=== PATIENT | female | born 1995 | race Caucasian/White ===

== ENCOUNTER 2020-01-01 06:50 | Emergency (ER) | payer OTHER, SELFPAY ==
[2020-01-01 06:55] VITALS: BP 139/66; PULSE 124; RESP 20; TEMP 36.8; O2SAT 99
--- NOTE | 2020-01-01 07:16 | ED.NAVMDI ---
HPI - Nausea/Vomiting/Diarrhea General Chief complaint: Abdominal Pain Stated complaint: VOMITING Time Seen by Provider: 01/01/20 07:04 Source: patient Mode of arrival: ambulatory Limitations: no limitations History of Present Illness HPI Narrative: Patient is a 24-year-old female who presents to the emergency department with complaint of nausea and vomiting. Patient reports onset of symptoms yesterday evening. She also reports periumbilical abdominal pain, intermittent chest pain, headache, dizziness upon standing, fever, chills, sweats, rhinorrhea, and congestion. Patient is denying any diarrhea or urinary symptoms. MD elicited complaint: nausea, vomiting and abdominal pain Onset (ago): day(s) Associated nausea: Yes Associated abdominal pain: Yes Location of pain: periumbilical Pain consistency: constant Quality: aching Associated symptoms: chest pain, diaphoresis, fever/chills, headaches, nausea/vomiting and other (Rhinorrhea, congestion, dizziness) Related Data Allergies Allergy/AdvReac Type Severity Reaction Status Date / Time cinnamon Allergy Anaphylaxis Verified 01/01/20 07:00 Sulfa (Sulfonamide Allergy Itching Verified 01/01/20 07:00 Antibiotics) Review of Systems Review of Systems: All systems reviewed & are unremarkable except as noted in HPI and below Constitutional: Constitutional: Reports chills, Reports excessive sweating, Reports fever(s) and Reports headache(s) ENT: Reports nasal congestion and Reports nasal discharge Gastrointestinal: Gastrointestinal: Reports abdominal pain, Denies diarrhea, Reports nausea and Reports vomiting Genitourinary: Genitourinary: Reports amenorrhea (Secondary to implanted control), Denies hematuria, Denies nocturia and Denies dysuria [facility] Past Medical History Medical History (Updated 01/01/20 @ 09:50 by Cira Celis MD) Kidney stones Surgical History Surgical History (Updated 01/01/20 @ 07:22 by Cira Celis MD) No history of previous surgery Social History Social History (Updated 01/01/20 @ 07:22 by Cira Celis MD) Smoking status: Never smoker Gender identity (if verbalized by the patient): Female Comments Primary care provider: Shona Lopez NP Exam Const: General: cooperative, no acute distress and alert Nutritional Appearance: obese Orientation/consciousness: patient oriented x3 Limitations: no limitations HENMT: Mouth: Yes lip normal and Yes moist mucous membranes Resp: Effort & Inspection: normal respiratory effort Auscultation: clear to auscultation bilaterally Cardio: Rate: tachycardic Rhythm: regular rhythm GI: GI Palp: Yes Soft to palpation and Yes Tenderness to palpation present (GI) (Periumbilical) Auscultation: normal bowel sounds : General: Yes CVA tenderness on the left Skin: General skin exam: normal color Neuro: General: patient oriented x3 Cognition (Neuro): normal cognition Speech: normal speech Extrem: General: normal to inspection, full ROM and no clubbing, cyanosis or edema Psych: Mental Status: mental status grossly normal Affect: normal affect Attitude: cooperative Course Course Emergency Course: Patient feeling better after Toradol, Zofran, and fluids. Repeat abdominal exam reveals no tenderness. Patient states abdominal pain is gone. Patient with findings of UTI. Influenza testing negative. Will discharge home. Patient given return precautions. Vital Signs Vital signs: Vital Signs Temperature 98.3 F 01/01/20 06:55 Pulse Rate 124 H 01/01/20 06:55 Respiratory Rate 20 01/01/20 06:55 Blood Pressure 139/66 01/01/20 06:55 Pulse Oximetry 99 01/01/20 06:55 Temperature 98.3 F 01/01/20 06:55 Pulse Rate 90 01/01/20 09:50 Respiratory Rate 16 01/01/20 09:50 Blood Pressure 116/62 01/01/20 09:50 Pulse Oximetry 99 01/01/20 09:50 MDM - Nausea/Vomiting/Diarrhea Lab Data Attestation: I reviewed the patient's lab results. Result linda
[2020-01-01 07:32] LABS: Basophils Percent Auto 0.3 % (0.2-1.2); Eosinophils Absolute Auto 0.1 K/mm3 (0-0.3); Hematocrit 43.1 % (37.0-47.0); Hemoglobin 14.2 g/dL (12.0-15.0); Immature Granulocyte Absolute 0.06 K/mm3 (0.00-0.031); Immature Granulocyte Percent A 0.5 % (0-0.5); Lymphocytes Absolute Auto 0.54 K/mm3 (0.9-3.2); Lymphocytes Percent Auto 4.6 % (18.3-44.2); Mean Corpuscular HGB Conc 32.9 g/dl (32-36); Mean Corpuscular Hemoglobin 27.6 pg (26-34); Mean Corpuscular Volume 83.7 fl (80-100); Mean Platelet Volume 8.8 fl (7.4-10.4); Monocytes Absolute Auto 0.4 K/mm3 (0.1-0.6); Monocytes Percent Auto 3.7 % (2.6-8.5); Neutrophils Absolute Auto 10.6 K/mm3 (1.3-6.7); Neutrophils Percent Auto 89.9 % (45.5-73.1); Platelet Count Result 284 k/mm3 (150-375); Red Blood Count 5.15 M/mm3 (4.2-5.4); Red Cell Distribution Width 13.1 % (11.5-14.5); White Blood Count 11.8 K/mm3 (4.5-10.0)
[2020-01-01 07:37] LABS: Add Urine Microscopic? YES; Appearance Urine Cloudy (Clear); Bacteria Urine Trace /hpf; Bilirubin Urine Negative (Negative); Blood Urine Negative (Negative); Color Urine Yellow (Yellow); Glucose Urine UA Negative (Negative); Ketones Urine Negative (Negative); Leukocyte Esterase Ur 2+ LEU/UL (Negative); Mucus Urine Heavy /lpf; Nitrate Urine Negative (Negative); Protein Urine 1+ mg/dL (Negative); Specific Grav Ur 1.029 (1.001-1.035); Squamous Epithelial Cell Urine Many /hpf (Few); Urobilinogen Urine Negative mg/dL (<2.0); WBC Urine 31-50 /hpf
[2020-01-01 07:41] LABS: Alanine Aminotransferase 31 U/L (4-35); Albumin Level 4.6 g/dL (3.5-5.1); Alkaline Phosphatase 87 U/L (38-126); Aspartate Amino Transferase 23 U/L (14-36); Bilirubin,Total 0.7 mg/dL (0.2-1.3); Blood Urea Nitrogen 15 mg/dL (7-17); Calcium 9.2 mg/dL (8.4-10.2); Carbon Dioxide 21 mmol/L (22-30); Chloride 103 mmol/L (98-107); Estimated Glomerular Filt Rate > 60; Glucose 102 mg/dL (65-105); Lipase 126 U/L (23-300); Potassium 4.1 mmol/L (3.4-5.0); Sodium 140 mmol/L (137-145)
[2020-01-01] MEDS: KETOROLAC 30 MG/ML VIAL (*BKC) IV PUSH (07:46)
[2020-01-01] MEDS: ONDANSETRON INJ 4 MG/2 ML VIAL IV PUSH (07:46)
[2020-01-01] MEDS: LACTATED RINGERS 2,000 ML 999 ML IV CONT (07:51)
[2020-01-01 09:50] VITALS: BP 116/62; PULSE 90; RESP 16; O2SAT 99
--- NOTE | 2020-01-08 08:32 | PC.NURSE ---
LATE ENTRY This note is being entered to document information to the patient's record. The following information was omitted on [01/01/2020], by [JARETH Clifton]. Rocephine infused with a stop time of 1010.
== END 2020-01-01 10:12 | disposition home or self-care (01) ==
PROVIDERS: Emergency Provider Emergency Medicine; PCP Nurse Practitioner Family
DX: B34.9 Viral infection, unspecified (principal); E86.0 Dehydration; N30.00 Acute cystitis without hematuria
CPT/HCPCS: 36415; 80053; 81001; 81025; 83690; 85025; 87077; 87086; 87088; 87186; 87804; 96361; 96365; 96375; 99284; J0696; J1885; J2405; J7120

== ENCOUNTER 2021-01-10 05:04 | Emergency (ER) | payer OTHER, SELFPAY ==
--- NOTE | ~2021-01-10 | XR_ITS ---
EXAMINATION: XR knee RT min 4V DATE: 01/10/2021 05:53 INDICATION: Right knee pain TECHNIQUE: Four views of the right knee were obtained. COMPARISON: None. FINDINGS: Alignment is normal. No fracture or osteochondral lesion. Joint spaces are normal with no e rosions. No joint effusion/synovitis. There is mild anterior soft tissue swelling of the knee. IMPRESSION: 1. No acute osseous abnormality. Reviewed, dictated and finalized at location A. [employer]
[2021-01-10 05:07] VITALS: BP 134/81; PULSE 94; RESP 16; TEMP 36.4; O2SAT 96
--- NOTE | 2021-01-10 06:17 | ED.LOWEXIN ---
HPI - Extremity Injury (Lower) General Chief Complaint: Extremity Injury, Lower Stated Complaint: right knee pain Time Seen by Provider: 01/10/21 06:12 History of Present Illness HPI Narrative: Right knee pain since yesterday. Started after she hyperextended it in a sledding accident. Locateed inferior lateral to the right knee. Moderate. Increasing. She has been able to walk. Related Data Home Medications Medication Instructions Recorded Confirmed No Home Medications 01/10/21 01/10/21 Allergies Allergy/AdvReac Type Severity Reaction Status Date / Time cinnamon Allergy Anaphylaxis Verified 01/10/21 05:13 Sulfa (Sulfonamide Allergy Itching Verified 01/10/21 05:13 Antibiotics) Review of Systems Review of Systems: All systems reviewed & are unremarkable except as noted in HPI and below Constitutional: Constitutional: Denies fever(s) and Denies weakness Cardiovascular: Cardiovascular: Denies chest pain Respiratory: Respiratory: Denies dyspnea Gastrointestinal: Gastrointestinal: Denies abdominal pain Musculoskeletal: Musculoskeletal: Denies back pain Neurologic: Denies numbness and Denies weakness [facility] Past Medical History Medical History Kidney stones Surgical History Surgical History No history of previous surgery Social History Social History Smoking status: Never smoker Gender identity (if verbalized by the patient): Female Exam Const: General: no acute distress and alert Nutritional Appearance: obese Orientation/consciousness: patient oriented x3 HENMT: Ears: EAC's normal Resp: Effort & Inspection: normal respiratory effort Auscultation: clear to auscultation bilaterally Cardio: Rate: regular rate Rhythm: regular rhythm Other: 2+ right DP Skin: General skin exam: normal color Neuro: General: patient oriented x3, moves all extremities and no focal motor deficits Speech: normal speech Gait exam (Neuro): Normal gait present Extrem: Other: Right knee: No appreciable swelling or deformity. Full ROM. Mild apprehension with lateral stress. No calf tenderness or swelling Course Vital Signs Vital signs: Vital Signs Temperature 36.4 C L 01/10/21 05:07 Pulse Rate 94 01/10/21 05:07 Respiratory Rate 16 01/10/21 05:07 Blood Pressure 134/81 01/10/21 05:07 Pulse Oximetry 96 01/10/21 05:07 Temperature 36.4 C L 01/10/21 05:07 Pulse Rate 94 01/10/21 05:07 Respiratory Rate 16 01/10/21 05:07 Blood Pressure 134/81 01/10/21 05:07 Pulse Oximetry 96 01/10/21 05:07 MDM - Extremity Injury (Lower) MDM Narrative Medical decision making narrative: Sprain, strain, effusion, fracture Medical Records Attestation: I reviewed the patient's medical records. Imaging Data Radiologist's impression: ITS Impressions Knee X-Ray 01/10/21 07:28 IMPRESSION: 1. No acute osseous abnormality. Discharge Plan Discharge Clinical Impression: Right knee sprain Qualifiers: Encounter type: initial encounter Involved ligament of knee: unspecified ligament Qualified Code(s): S83.91XA - Sprain of unspecified site of right knee, initial encounter Patient Disposition: Home, Self-Care Condition: Stable Instructions: Antibiotic Form, Knee Sprain (ED) Prescriptions: No Action No Home Medications RF: 0 Follow-up/Referrals: John,NICOLLE McP-BC [Primary Care Provider] -
== END 2021-01-10 06:45 | disposition home or self-care (01) ==
PROVIDERS: Emergency Provider Emergency Medicine; PCP Nurse Practitioner Family
DX: S83.91XA Sprain of unspecified site of right knee, initial encounter (principal); Y93.23 Activity, snow (alpine) (downhill) skiing, snowboarding, sledding, tobogganing and snow tubing; V00.228A Other sled accident, initial encounter; Z87.442 Personal history of urinary calculi
CPT/HCPCS: 73564; 99283

== ENCOUNTER 2025-08-14 22:20 | Emergency (ER) | payer SELFPAY ==
[2025-08-14] VITALS (8 sets, daily range): BP systolic 152–154; BP diastolic 77–93; PULSE 108–120; RESP 16–30; TEMP 36.9; O2SAT 98–100
--- NOTE | ~2025-08-14 | CT_ITS ---
CTA CHEST CLINICAL HISTORY: shortness of breath, elevated d dimer . COMPARISON: Chest x-ray same day TECHNIQUE: Helical CTA performed from thoracic inlet to upper abdomen 100 mL Omnipaque 350 Coronal, sagittal reformats. Multiplanar MIPS CT images acquired with automatic exposure control for dose reduction DLP: 832 mGy-cm FINDINGS: Pulmonary arteries: No PE. Thoracic Aorta: No dissection or aneurysm. Heart/pericardium: Unremarkable. RV/LV ratio: Normal. Lungs/Pleura: 16 mm nodule right lower lobe. Bilateral small dependent airspace opacities. Tracheobronchial tree: Patent. Nodes: No enlarged nodes. Right hilar calcification Bones: No acute bony abnormality. Soft tissues: Unremarkable. Visualized upper abdomen: Unremarkable. IMPRESSION: 1. 16 mm nodule right lower lobe. Recommend PET/CT and/or biopsy. 2. Small bilateral aspiration and/or airspace disease. 3. No PE. Reviewed, dictated and finalized at location R.
--- NOTE | ~2025-08-14 | XR_ITS ---
Examination: XR chest 2V Clinical History: shortness of breath, chest pain Comparison: None Technique: PA and Lateral Findings: Cardiomediastinal silhouette normal size and configuration. Trace bibasilar atelectasis. Minimal left perihilar atelectasis. No acute bony abnormality. IMPRESSION: 1. No significant acute cardiopulmonary findings. Reviewed, dictated and finalized at location R.
--- NOTE | 2025-08-14 22:42 | ECG_ITS ---
Test Date: 2025-08-14 22:58:45 Measurements Intervals [place] Rate: 108 P: 9 [place]: 132 QRS: -6 QRSD: 94 T: 9 QT: 321 QTc: 431 Interpretive Statements SINUS TACHYCARDIA ABNORMAL RHYTHM ECG No previous ECG available for comparison Electronically Signed On 08-15-2025 14:20:46 CDT by Partha Cano M.D.
--- NOTE | 2025-08-14 22:43 | ED.GENADULT ---
HPI - General Adult General Chief complaint: Unspecified Stated complaint: MULTIPLE COMPLAINTS Time Seen by Provider: 08/14/25 22:32 History of Present Illness HPI narrative: Patient is a 30-year-old female who presents to the ER with complaints congestion, headache, chest pain, sore throat, mild cough, shortness of breath, body aches and fever. Her symptoms started approximately 2 weeks ago. She reports she noticed a fever this evening with a T-max of 100?. Patient reports the chest pain is mostly on the right side. She denies any medical history relevant to this ER visit but does have a history of kidney stones. Patient denies any wheezing, acute back pain, urinary symptoms, or abdominal pain. Related Data Allergies Allergy/AdvReac Type Severity Reaction Status Date / Time cinnamon Allergy Anaphylaxis Verified 08/14/25 23:12 Sulfa (Sulfonamide Allergy Itching Verified 08/14/25 23:12 Antibiotics) Review of Systems Review of Systems: All systems reviewed & are unremarkable except as noted in HPI and below PMFSH Past Medical History Medical History Kidney stones Surgical History Surgical History No history of previous surgery Social History Social History Smoking status: Never smoker Gender identity (if verbalized by the patient): Female Exam Narrative: GENERAL: Ill-appearing, obese, non-toxic, in mild distress. HEAD: Normocephalic, atraumatic. + swollen and red tonsils NECK: Supple. Mild adenopathy, no masses. RESPIRATORY: Airway patent, respirations nonlabored. No wheezing. Diminished lung sounds on right side. CARDIOVASCULAR: Tachycardia without murmurs, rubs, or gallops. Peripheral pulses 2+ and equal bilaterally. ABDOMINAL: Soft, nontender, nondistended, no hepatosplenomegaly. Normoactive BS. MUSCULOSKELETAL: Moves all extremities. Strength/ROM intact without gross deformities. SKIN: Warm, dry, normal color. No rashes. NEURO: A&O X3. Speech clear. Cranial nerves II-XII intact. No ataxic movements. PSYCHIATRIC: Appropriate mood and affect. Normal interaction. Course Vital Signs Vital signs: Vital Signs Temperature 36.9 C 08/14/25 22:29 Pulse Rate 120 H 08/14/25 22:29 Respiratory Rate 21 H 08/14/25 22:29 Blood Pressure 154/93 H 08/14/25 22:29 Pulse Oximetry 100 08/14/25 22:29 Oxygen Delivery Room Air 08/14/25 22:29 Temperature 36.9 C 08/14/25 22:29 Pulse Rate 105 H 08/15/25 01:15 Respiratory Rate 23 H 08/15/25 01:15 Blood Pressure 131/83 08/15/25 01:08 Pulse Oximetry 100 08/15/25 01:15 Oxygen Delivery Room Air 08/14/25 22:29 Medical Decision Making MDM Narrative Medical decision making narrative: Patient is a 30-year-old female who presents to the ER with complaints congestion, headache, chest pain, sore throat, mild cough, shortness of breath, body aches and fever. Her symptoms started approximately 2 weeks ago. She reports she noticed a fever this evening with a T-max of 100?. Patient reports the chest pain is mostly on the right side. She denies any medical history relevant to this ER visit but does have a history of kidney stones. Patient denies any wheezing, acute back pain, urinary symptoms, or abdominal pain. Labs Ordered: CBC, CMP, troponin, D-dimer, UA, COVID/flu/RSV, strep swab, mono test Imaging Ordered: Chest x-ray Medications Ordered: DuoNeb Results: Patient's strep test was positive. Her CBC indicates white blood count of 15.9. Patient's D-dimer was elevated to 0.82. Her chemistry indicates a sodium of 135. Patient's troponin was less than 0.012. Her mono screen was negative. Patient's respiratory swab was negative for COVID, flu, and RSV. Patient's urinalysis indicates patient has a UTI. Her CT scan indicates patient has pneumonia Diagnosis: Strep, pneumonia, UTI Risks: HEART score: low HEART Score for Major Cardiac Events from [email or web address] on 08/15/2025 All calculations should be rechecked by clinician prior to use RESULT SUMMARY: 1 points Low Score (0-3 points) Risk of MACE of 0.9-1.7%. INPUTS: History ?> 0 = Slightly suspicious EKG ?> 0 = Normal Age ?> 0 = <45 Risk factors ?> 1 = 1-2 risk factors Initial troponin ?> 0 = <Normal limit Fleischner Society Guidelines for Pulmonary Nodules Fleischner Society Guidelines for Incidental Pulmonary Nodules from [email or web address] on 08/15/2025 All calculations should be rechecked by clinician prior to use RESULT SUMMARY: Consider CT at 3 months, PET/CT, or tissue sampling INPUTS: Nodule type ?> 0 = Solid Number of nodules ?> 0 = Single Risk level ?> 0 = Low Size ?> 2 = >8 mm (>250 mm?) Patient Education/Shared MDM: Results of lab work and imaging shared with patient. She endorses improvement of symptoms following nebulizer administration. Patient will be given a dose of steroids here before discharge. She was given her 1st dose of oral antibiotic here in the ER. Patient strongly advised to maintain hydration status upon discharge and follow-up with her PCP in the next 2-3 days to ensure she is healing. She will be discharged home with a prescription for Augmentin and and albuterol inhaler. Strict return precautions provided. Patient verbalized understanding and is in agreement with plan. Vital signs stable at time of discharge. All questions answered. Differential Diagnosis Differential Diagnosis: COVID, flu, mono, strep, pneumonia, UTI Vital Signs Vital Signs: Vital Signs Temperature 36.9 C 08/14/25 22:29 Pulse Rate 120 H 08/14/25 22:29 Respiratory Rate 21 H 08/14/25 22:29 Blood Pressure 154/93 H 08/14/25 22:29 Pulse Oximetry 100 08/14/25 22:29 Oxygen Delivery Room Air 08/14/25 22:29 Temperature 36.9 C 08/14/25 22:29 Pulse Rate 105 H 08/15/25 01:15 Respiratory Rate 23 H 08/15/25 01:15 Blood Pressure 131/83 08/15/25 01:08 Pulse Oximetry 100 08/15/25 01:15 Oxygen Delivery Room Air 08/14/25 22:29 Lab Data Lab results reviewed: Yes I reviewed the patient's lab results. 08/14/25 23:09 08/14/25 23:09 Labs: Lab Results 08/14/25 08/15/25 08/15/25 Range/Units 23:09 01:08 01:25 WBC 15.9 H (4.5-10.0) K/mm3 RBC 4.97 (4.2-5.4) M/mm3 Hgb 13.6 (12.0-15.0) g/dL Hct 40.6 (37.0-47.0) % MCV 81.7 (80-100) fl MCH 27.4 (26-34) pg MCHC 33.5 (32-36) g/dl RDW 13.2 (11.5-14.5) % Plt Count 311 (150-375) k/mm3 MPV 8.4 (7.4-10.4) fl Immature Gran % (Auto) 0.4 (0-0.5) % Neut % (Auto) 84.2 H (45.5-73.1) % Lymph % (Auto) 6.6 L (18.3-44.2) % [place] % (Auto) 5.5 (2.6-8.5) % Eos % (Auto) 2.4 (0-4.4) % Baso % (Auto) 0.9 (0.2-1.2) % Lymph # (Auto) 1.05 (0.9-3.2) K/mm3 [place] # (Auto) 0.9 H (0.1-0.6) K/mm3 Eos # (Auto) 0.4 H (0-0.3) K/mm3 Baso # (Auto) 0.1 (0.0-0.1) K/mm3 Abs Immat Gran (auto) 0.06 H (0.00-0.031) K/mm3 Absolute Neuts (auto) 13.4 H (1.3-6.7) K/mm3 Absolute Nucleated RBC 0.000 (0.0-0.012) K/mm3 Nucleated RBC % 0.0 (0.0-0.2) % D-Dimer 0.82 H (<0.48) ug/mL Sodium 135 L (137-145) mmol/L Potassium 4.1 (3.4-5.0) mmol/L Chloride 103 (98-107) mmol/L Carbon Dioxide 24 (22-30) mmol/L Anion Gap 8 (4-12) mmol/L BUN 13 (7-17) mg/dL Creatinine 0.92 (0.7-1.0) mg/dL Estim Creat Clear Calc 100 ml/min Estimated GFR > 60 (59 - ) Glucose 97 (65-110) mg/dL Calcium 8.7 (8.4-10.2) mg/dL Total Bilirubin 0.6 (0.2-1.3) mg/dL AST 25 (14-36) U/L ALT 22 (6-35) U/L Alkaline Phosphatase 81 (38-126) U/L Troponin I < 0.012 (0.000-0.034) ng/mL Total Protein 7.6 (6.3-8.2) g/dL Albumin 4.3 (3.5-5.1) g/dL Urine Color Yellow (Yellow) Urine Appearance Cloudy H (Clear) Urine pH 5.5 (5.0-9.0) Ur Specific [place] 1.032 (1.001-1.035) Urine Protein Negative (Negative) mg/dL Urine Glucose (UA) Negative (Negative) mg/dL Urine Ketones Negative (Negative) mg/dL Ur Blood (Man) Negative (Negative) Urine Nitrate Negative (Negative) Urine Bilirubin Negative (Negative) Urine Urobilinogen 0.2 (<2.0) mg/dL Add Ur Microanalysis Reviewed Leukocyte Esterase Rfl 2+ H (Negative) ARNOLD/UL Urine RBC 0-2 (0-2) /hpf Urine WBC 21-50 H (0-3) /hpf Ur Squamous Epith Cells Moderate (Few) /hpf Urine Bacteria 2+ H /hpf Urine Casts 11-20 POC Urine HCG, Qual Negative (Negative) Monoscreen Negative (Negative) Influenza A (RT-PCR) Negative (Negative) Influenza B (RT-PCR) Negative (Negative) RSV (RT-PCR) Negative (Negative) SARS-CoV-2 RNA (RT-PCR) Negative (Negative) Group A Strep (PCR) Detected A (Negative) Imaging Data Attestation: I personally reviewed and interpreted this imaging study as follows: Radiologist's impression: Patient's CT scan indicates no acute pulmonary embolism. Right lower lobe nodule measures 1.6 cm. Follow-up as per Fleischner society guidelines. Dependent airspace consolidations concerning for mild pneumonia. Discharge Plan Discharge Clinical Impression: Strep pharyngitis, Pneumonia, Urinary tract infection, Incidental lung nodule, greater than or equal to 8mm Patient Disposition: Home Condition: Stable Instructions: Antibiotic Form Additional Instructions: Please return to the ER with any worsening symptoms. Follow-up with primary care provider in the next 2-3 days to ensure your healing. Take all medications as prescribed. Complete your full dose of antibiotics. Please use your inhaler as needed for shortness of breath. Patient Language: [place]ian Prescriptions: New amoxicillin-pot clavulanate 875-125 mg tablet 1 tablet PO Q12H Qty: 20 0RF albuterol sulfate [Ventolin HFA] 90 mcg/actuation HFA aerosol inhaler 2 puff inhalation QID Qty: 8.5 0RF Follow-up/Referrals: Kate,CLARITZA Nina [Primary Care Provider, Unknown] Stand Alone Forms: Work/School Release IP Time of Disposition: 01:52
[2025-08-14] MEDS: IPRATROPIUM 0.5 MG/ALBUTEROL SULFATE 2.5 MG AMPUL.NEB 3 ML INHALATION (22:59)
[2025-08-14 23:16] LABS: Hematocrit 40.6 % (37.0-47.0); Hemoglobin 13.6 g/dL (12.0-15.0); Immature Granulocyte Percent A 0.4 % (0-0.5); Lymphocytes Absolute Auto 1.05 K/mm3 (0.9-3.2); Mean Corpuscular HGB Conc 33.5 g/dl (32-36); Mean Corpuscular Hemoglobin 27.4 pg (26-34); Mean Corpuscular Volume 81.7 fl (80-100); Nucleated Red Blood Cells Absolute Auto 0.000 K/mm3 (0.0-0.012); Nucleated Red Blood Cells Perc 0.0 % (0.0-0.2); Platelet Count Result 311 k/mm3 (150-375); Red Blood Count 4.97 M/mm3 (4.2-5.4); White Blood Count 15.9 K/mm3 (4.5-10.0)
[2025-08-14 23:27] LABS: Alanine Aminotransferase 22 U/L (6-35); Albumin Level 4.3 g/dL (3.5-5.1); Alkaline Phosphatase 81 U/L (38-126); Anion Gap 8 mmol/L (4-12); Aspartate Amino Transferase 25 U/L (14-36); Bilirubin,Total 0.6 mg/dL (0.2-1.3); Blood Urea Nitrogen 13 mg/dL (7-17); Calcium 8.7 mg/dL (8.4-10.2); Carbon Dioxide 24 mmol/L (22-30); Chloride 103 mmol/L (98-107); Estimated CRCL calculation 100 ml/min; Estimated Glomerular Filt Rate > 60; Glucose 97 mg/dL (65-110); Potassium 4.1 mmol/L (3.4-5.0); Sodium 135 mmol/L (137-145); Total Protein 7.6 g/dL (6.3-8.2)
[2025-08-14 23:32] LABS: Negative Monotest Control Negative (Negative); Positive Monotest Control Positive (Positive)
[2025-08-14 23:37] LABS: Strep Group A RT-PCR DETECTED (Negative)
[2025-08-14 23:39] LABS: Troponin I < 0.012 ng/mL (0.000-0.034)
[2025-08-14 23:51] LABS: Influenza A QL RT-PCR Negative (Negative); Influenza B QL RT-PCR Negative (Negative); RSV RNA, RT-PCR Negative (Negative); SARS-CoV-2 RNA PCR Negative (Negative)
[2025-08-15] VITALS (10 sets, daily range): BP systolic 131–136; BP diastolic 77–83; PULSE 102–115; RESP 18–32; O2SAT 97–100
[2025-08-15] MEDS: AMOXICILLIN 500 MG CAPSULE PO (00:52)
[2025-08-15 01:27] LABS: BEDSIDEPREGUCG Negative (Negative)
[2025-08-15 01:29] LABS: Add Urine Microscopic? YES; Appearance Urine Cloudy (Clear); Glucose Urine UA Negative (Negative); Leukocyte Esterase Ur 2+ LEU/UL (Negative); Need Manual Microscopic Reviewed; Nitrate Urine Negative (Negative); Specific Grav Ur 1.032 (1.001-1.035)
== END 2025-08-15 02:13 | disposition home or self-care (01) ==
PROVIDERS: Emergency Provider Registered Nurse; PCP Physician Assistant
DX: J02.0 Streptococcal pharyngitis (principal); J18.9 Pneumonia, unspecified organism; N39.0 Urinary tract infection, site not specified; R91.1 Solitary pulmonary nodule; Z20.822 Contact with and (suspected) exposure to COVID-19; R94.31 Abnormal electrocardiogram [ECG] [EKG]; Z87.442 Personal history of urinary calculi
CPT/HCPCS: 36415; 71046; 71275; 80053; 81001; 81025; 84484; 85025; 85380; 86308; 87637; 87651; 93005; 94640; 96374; 99284; A9270; J2919; Q9967